=== PATIENT | female | born 1995 | race Two or more races ===

== ENCOUNTER 2023-09-04 15:06 | Emergency (ER) | payer SELFPAY ==
[~2023-09-04] VITALS: Ht 160 cm; Wt 54.5 kg
[2023-09-04 15:16] VITALS: BP 122/86; PULSE 75; RESP 18; O2SAT 98
[2023-09-04] MEDS ORDERED: SODIUM CHLORIDE 0.9% 1,000 ML IV ONE (15:30)
== END 2023-09-04 19:40 | disposition left against medical advice (07) ==
LOC: ER 15:06 → EDBD 15:06 → ER 19:40
DX: R05.9 Cough, unspecified (principal); J02.9 Acute pharyngitis, unspecified; R53.83 Other fatigue; Z53.21 Procedure and treatment not carried out due to patient leaving prior to being seen by health care provider